=== PATIENT | female | born 1950 | race Caucasian/White ===

== ENCOUNTER 2020-02-03 06:10 | Inpatient (IN) | payer MEDICARE ==
[2020-02-03 12:07] VITALS: BP 138/88
[2020-02-03] MEDS ORDERED: Magnesium Hydroxide (MOM) 30 mL UDC PO PRN (12:14)
[2020-02-03] MEDS ORDERED: Maalox 30 mL Cup PO PRN (12:14)
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
--- NOTE | 2020-02-03 23:45 | History & Physical ---
ADMIT DATE: 02/03/2020 HISTORY OF PRESENT ILLNESS: The patient is a 70-year-old female with long history of depression, alcohol dependency, degenerative joint disease, admitted to [facility] under Dr. Davies's service for evaluation and treatment. The patient denies chest pain, shortness of breath, nausea, vomiting, fever or chills. PAST MEDICAL HISTORY: Significant for depression, degenerative joint disease, alcohol dependency. PAST SURGICAL HISTORY: No recent surgery. ALLERGIES: None. MEDICATIONS: Follow admission reconciliation. REVIEW OF SYSTEMS: RENAL SYSTEM: No history of chronic renal disorder. CARDIOVASCULAR SYSTEM: No coronary artery disease. ENDOCRINE SYSTEM: No diabetes or thyroid problem. GASTROINTESTINAL SYSTEM: No upper or lower gastrointestinal bleed. NEUROLOGICAL SYSTEM: No seizure disorder. MUSCULOSKELETAL SYSTEM: No muscular dystrophy. HEMATOLOGICAL SYSTEM: No bleeding tendencies. RESPIRATORY SYSTEM: No asthma. GENITOURINARY: No dysuria or hematuria. PHYSICAL EXAMINATION: GENERAL: She is awake, alert, oriented. VITAL SIGNS: Temperature is 98.2, heart rate 78, blood pressure 120/81. HEENT: Normocephalic. Pupils are reactive to light and accommodation. Sclerae clear. NECK: Supple. Negative for lymphadenopathy, JVD or bruit. CHEST: Bilaterally normal. No rhonchi or wheezing. HEART: S1 and S2 normal. No gallop rhythm. ABDOMEN: Soft, bowel sounds positive. EXTREMITIES: No edema. NEUROLOGIC: She is awake, alert. No focal motor or sensory deficit. Cranial nerves 2-12 are intact. ASSESSMENT: 1. Degenerative joint disease. 2. Alcohol dependency. 3. Major depression. PLAN: The patient in the hospital under Dr. Davies's service. Problems addressed during this hospitalization are depression. Medical problem addressed at discharge, alcohol dependency. The patient is medically stable for activity. Thank you, Dr. Davies, for asking me to see your patient. The patient will follow up with primary physician upon discharge. JOB# [id number]
[2020-02-04] MEDS: Multivitamin Tab PO SCH (08:53)
--- NOTE | 2020-02-04 20:20 | Internal Medicine Prog Note ---
Internal Medicine Subjective - Subjective Service Date: 02/04/20 Patient is:: awake, verbal, ambulating, talking Per staff patient has:: no adverse event Internal Medicine Objective - Physical Exam Vitals and I&O: Vital Signs Temp 97.3 F 02/04/20 14:00 Pulse 73 02/04/20 14:00 Resp 18 02/04/20 14:00 BP 118/72 02/04/20 14:00 Pulse Ox 99 02/04/20 14:00 Intake & Output 02/04/20 02/04/20 02/05/20 06:59 18:59 06:59 Intake Total 120 850 Balance 120 850 Intake: Oral 120 850 Other: # Voids 2 3 # Bowel Movements 0 0 Active Medications: Current Medications Acetaminophen (Tylenol) 650 mg PO Q4H PRN PRN Reason: Pain (Mild 1-3) Stop: 04/03/20 12:13 Last Admin: 02/03/20 21:19 Dose: 650 mg Al Hydrox/Mg Hydrox/Simethicone (Maalox) 30 ml PO Q4HR PRN PRN Reason: GI DISTRESS Stop: 04/03/20 12:13 Folic Acid (Folate) 1 mg PO DAILY [facility] Stop: 04/04/20 08:59 Last Admin: 02/04/20 08:53 Dose: 1 mg Lorazepam (Ativan) 0.5 mg PO Q4HR PRN; Protocol PRN Reason: Anxiety Stop: 03/04/20 12:13 Magnesium Hydroxide (Milk Of Magnesia) 30 ml PO HS PRN PRN Reason: Constipation Mirtazapine (Remeron) 7.5 mg PO HS [facility]; Protocol Stop: 04/03/20 20:59 Last Admin: 02/03/20 21:19 Dose: 7.5 mg Multivitamins/Vitamin C (Theragran) 1 tab PO DAILY [facility] Stop: 04/04/20 08:59 Last Admin: 02/04/20 08:53 Dose: 1 tab Thiamine HCl (Vitamin B1) 100 mg PO DAILY [facility] Stop: 04/04/20 08:59 Last Admin: 02/04/20 08:53 Dose: 100 mg General: alert HEENT: NC/AT, PERRLA, EOMI, anicteric sclerae, throat clear Neck: Supple, No JVD, No thyromegaly, +2 carotid pulse wo bruit, No LAD Lungs: CTAB Cardiovascular: RRR, Normal S1, Normal S2, without murmur Abdomen: non-tender, non-distended Extremities: clear Neurological: no change, gait stable Internal Medicine Assmt/Plan - Assessment Assessment: 1.HTN. 2.ALCOHOL DEPENDENCY. 3.MAJOR DEPRESSION - Plan Plan: CONTINUE ON CURRENT MEDICATION AND ADD COZAAR 100 MG PO DAILY.
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
[2020-02-05] MEDS: Multivitamin Tab PO SCH (08:34)
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
--- NOTE | 2020-02-05 17:08 | Internal Medicine Prog Note ---
Internal Medicine Subjective - Subjective Service Date: 02/05/20 Patient seen and examined:: without staff (SHE FEELS WELL) Patient is:: awake, verbal, ambulating, talking Per staff patient has:: no adverse event Internal Medicine Objective - Physical Exam Vitals and I&O: Vital Signs Temp 98.6 F 02/05/20 14:00 Pulse 88 02/05/20 14:00 Resp 20 02/05/20 14:00 BP 126/77 02/05/20 14:00 Pulse Ox 97 02/05/20 14:00 Intake & Output 02/04/20 02/05/20 02/05/20 18:59 06:59 18:59 Intake Total 850 120 120 Balance 850 120 120 Intake: Oral 850 120 120 Other: # Voids 3 2 2 # Bowel Movements 0 0 0 Active Medications: Current Medications Acetaminophen (Tylenol) 650 mg PO Q4H PRN PRN Reason: Pain (Mild 1-3) Stop: 04/03/20 12:13 Last Admin: 02/03/20 21:19 Dose: 650 mg Al Hydrox/Mg Hydrox/Simethicone (Maalox) 30 ml PO Q4HR PRN PRN Reason: GI DISTRESS Stop: 04/03/20 12:13 Folic Acid (Folate) 1 mg PO DAILY [facility] Stop: 04/04/20 08:59 Last Admin: 02/05/20 08:34 Dose: 1 mg Lorazepam (Ativan) 0.5 mg PO Q4HR PRN; Protocol PRN Reason: Anxiety Stop: 03/04/20 12:13 Losartan Potassium (Cozaar) 100 mg PO DAILY [facility] Stop: 04/05/20 08:59 Last Admin: 02/05/20 08:34 Dose: 100 mg Magnesium Hydroxide (Milk Of Magnesia) 30 ml PO HS PRN PRN Reason: Constipation Mirtazapine (Remeron) 15 mg PO HS [facility]; Protocol Stop: 04/05/20 20:59 Multivitamins/Vitamin C (Theragran) 1 tab PO DAILY [facility] Stop: 04/04/20 08:59 Last Admin: 02/05/20 08:34 Dose: 1 tab Thiamine HCl (Vitamin B1) 100 mg PO DAILY [facility] Stop: 04/04/20 08:59 Last Admin: 02/05/20 08:34 Dose: 100 mg General: alert HEENT: NC/AT, PERRLA, EOMI, anicteric sclerae, throat clear Neck: Supple, No JVD, No thyromegaly, +2 carotid pulse wo bruit, No LAD Lungs: CTAB Cardiovascular: RRR, Normal S1, Normal S2, without murmur Abdomen: non-tender, non-distended Extremities: clear Neurological: no change, gait stable Internal Medicine Assmt/Plan - Assessment Assessment: 1.HTN. 2.ALCOHOL DEPENDENCY. 3.MAJOR DEPRESSION - Plan Plan: CONTINUE ON CURRENT MEDICATION AND DIET
[2020-02-06] MEDS: Multivitamin Tab PO SCH (08:23)
--- NOTE | 2020-02-06 14:59 | Internal Medicine Prog Note ---
Internal Medicine Subjective - Subjective Service Date: 02/06/20 Patient seen and examined:: without staff (SHE IS DOING BETTER) Patient is:: awake, verbal, ambulating, talking Per staff patient has:: no adverse event Internal Medicine Objective - Physical Exam Vitals and I&O: Vital Signs Temp 98.9 F 02/06/20 14:00 Pulse 83 02/06/20 14:00 Resp 20 02/06/20 14:00 BP 127/57 02/06/20 14:00 Pulse Ox 96 02/06/20 14:00 Intake & Output 02/05/20 02/06/20 02/06/20 18:59 06:59 18:59 Intake Total 1020 240 Balance 1020 240 Intake: Oral 1020 240 Other: # Voids 3 2 # Bowel Movements 1 0 Active Medications: Current Medications Acetaminophen (Tylenol) 650 mg PO Q4H PRN PRN Reason: Pain (Mild 1-3) Stop: 04/03/20 12:13 Last Admin: 02/06/20 11:04 Dose: 650 mg Al Hydrox/Mg Hydrox/Simethicone (Maalox) 30 ml PO Q4HR PRN PRN Reason: GI DISTRESS Stop: 04/03/20 12:13 Folic Acid (Folate) 1 mg PO DAILY [facility] Stop: 04/04/20 08:59 Last Admin: 02/06/20 08:23 Dose: 1 mg Lorazepam (Ativan) 0.5 mg PO Q4HR PRN; Protocol PRN Reason: Anxiety Stop: 03/04/20 12:13 Last Admin: 02/06/20 11:04 Dose: 0.5 mg Losartan Potassium (Cozaar) 100 mg PO DAILY [facility] Stop: 04/05/20 08:59 Last Admin: 02/06/20 08:23 Dose: 100 mg Magnesium Hydroxide (Milk Of Magnesia) 30 ml PO HS PRN PRN Reason: Constipation Mirtazapine (Remeron) 30 mg PO HS [facility]; Protocol Stop: 04/06/20 20:59 Multivitamins/Vitamin C (Theragran) 1 tab PO DAILY [facility] Stop: 04/04/20 08:59 Last Admin: 02/06/20 08:23 Dose: 1 tab Thiamine HCl (Vitamin B1) 100 mg PO DAILY [facility] Stop: 04/04/20 08:59 Last Admin: 02/06/20 08:23 Dose: 100 mg General: alert HEENT: NC/AT, PERRLA, EOMI, anicteric sclerae, throat clear Neck: Supple, No JVD, No thyromegaly, +2 carotid pulse wo bruit, No LAD Lungs: CTAB Cardiovascular: RRR, Normal S1, Normal S2, without murmur Abdomen: non-tender, non-distended Extremities: clear Neurological: no change, gait stable Internal Medicine Assmt/Plan - Assessment Assessment: 1.HTN. 2.ALCOHOL DEPENDENCY. 3.MAJOR DEPRESSION - Plan Plan: CONTINUE ON CURRENT MEDICATION AND DIET
--- NOTE | 2020-02-06 22:37 | Progress Notes ---
DATE: 02/06/2020 Case was discussed with staff of the patient, reviewed records. The patient reports she slept a little bit better; however, not that well. I did increase her Remeron to 50 mg. Apparently, it did not work. I will be increasing it further to 30 mg at bedtime. No side effects with the medication, no sedation, no nausea and she continues to deny that she has any intent to harm her son-in-law and no intent to harm herself. We will continue outpatient group therapy, milieu therapy, adjust medication as needed. JOB# [id number]
[2020-02-07] MEDS: Multivitamin Tab PO SCH (09:06)
--- NOTE | 2020-02-07 20:09 | General Progress Note ---
Subjective - Review of Systems Service Date: 02/07/20 Subjective: resting comfortably no distress Objective - Physical Exam Vitals and I&O: Vital Signs Temp 97.6 F 02/07/20 14:00 Pulse 79 02/07/20 14:00 Resp 20 02/07/20 14:00 BP 113/65 02/07/20 14:00 Pulse Ox 97 02/07/20 14:00 Intake & Output 02/07/20 02/07/20 02/08/20 06:59 18:59 06:59 Intake Total 400 1200 Balance 400 1200 Intake: Oral 400 1200 Other: # Voids 1 # Bowel Movements 0 1 Active Medications: Current Medications Acetaminophen (Tylenol) 650 mg PO Q4H PRN PRN Reason: Pain (Mild 1-3) Stop: 04/03/20 12:13 Last Admin: 02/07/20 09:19 Dose: 650 mg Al Hydrox/Mg Hydrox/Simethicone (Maalox) 30 ml PO Q4HR PRN PRN Reason: GI DISTRESS Stop: 04/03/20 12:13 Folic Acid (Folate) 1 mg PO DAILY [facility] Stop: 04/04/20 08:59 Last Admin: 02/07/20 09:06 Dose: 1 mg Lorazepam (Ativan) 0.5 mg PO Q4HR PRN; Protocol PRN Reason: Anxiety Stop: 03/04/20 12:13 Last Admin: 02/07/20 16:52 Dose: 0.5 mg Losartan Potassium (Cozaar) 100 mg PO DAILY [facility] Stop: 04/05/20 08:59 Last Admin: 02/07/20 09:19 Dose: 100 mg Magnesium Hydroxide (Milk Of Magnesia) 30 ml PO HS PRN PRN Reason: Constipation Mirtazapine (Remeron) 30 mg PO HS [facility]; Protocol Stop: 04/06/20 20:59 Last Admin: 02/06/20 21:30 Dose: 30 mg Multivitamins/Vitamin C (Theragran) 1 tab PO DAILY [facility] Stop: 04/04/20 08:59 Last Admin: 02/07/20 09:06 Dose: 1 tab Thiamine HCl (Vitamin B1) 100 mg PO DAILY [facility] Stop: 04/04/20 08:59 Last Admin: 02/07/20 09:05 Dose: 100 mg General: Alert, Oriented x3 HEENT: Atraumatic Neck: Supple, JVD, Thyromegaly Cardiovascular: Regular rate, Normal S1, Normal S2 Lungs: Clear to auscultation Abdomen: Bowel sounds, Soft Assessment/Plan - Assessment Assessment: 1.HTN. 2.ALCOHOL DEPENDENCY. 3.MAJOR DEPRESSION - Plan Plan: continue current treatment
--- NOTE | 2020-02-08 00:03 | Progress Notes ---
DATE: 02/07/2020 SUBJECTIVE: The patient in the hospital, on hold ____ son-in-law, high anxiety, not wanting to engage with me today. Limited [id number], coming from [facility], apparently intoxicated, homicidal thoughts per nursing staff, well oriented, angry, upset, noting that she was drinking alcohol, intoxicated at time. Staff watching her closely. She is noted to be socializing well with peers, still irritable at times, angry, upset. It is unclear what happened at home. Medications were reviewed including mirtazapine, time was spent attempting to speak with the patient and staff. Medications were reviewed. Vitals were reviewed. PLAN: We will continue to monitor, coordinate care with social insurance analyst, JOB# [id number] SHAN
[2020-02-08] MEDS: Multivitamin Tab PO SCH (08:31)
--- NOTE | 2020-02-08 14:50 | General Progress Note ---
Subjective - Review of Systems Service Date: 02/08/20 Subjective: resting comfortably no distress Objective - Physical Exam Vitals and I&O: Vital Signs Temp 98.2 F 02/08/20 06:33 Pulse 62 02/08/20 08:32 Resp 18 02/08/20 07:53 BP 127/82 02/08/20 08:32 Pulse Ox 98 02/08/20 06:33 Intake & Output 02/07/20 02/08/20 02/08/20 18:59 06:59 18:59 Intake Total 1200 280 Balance 1200 280 Intake: Oral 1200 280 Other: # Voids 2 # Bowel Movements 1 0 Active Medications: Current Medications Acetaminophen (Tylenol) 650 mg PO Q4H PRN PRN Reason: Pain (Mild 1-3) Stop: 04/03/20 12:13 Last Admin: 02/07/20 09:19 Dose: 650 mg Al Hydrox/Mg Hydrox/Simethicone (Maalox) 30 ml PO Q4HR PRN PRN Reason: GI DISTRESS Stop: 04/03/20 12:13 Folic Acid (Folate) 1 mg PO DAILY [facility] Stop: 04/04/20 08:59 Last Admin: 02/08/20 08:31 Dose: 1 mg Lorazepam (Ativan) 0.5 mg PO Q4HR PRN; Protocol PRN Reason: Anxiety Stop: 03/04/20 12:13 Last Admin: 02/08/20 08:32 Dose: 0.5 mg Losartan Potassium (Cozaar) 100 mg PO DAILY [facility] Stop: 04/05/20 08:59 Last Admin: 02/08/20 08:32 Dose: 100 mg Magnesium Hydroxide (Milk Of Magnesia) 30 ml PO HS PRN PRN Reason: Constipation Mirtazapine (Remeron) 30 mg PO HS [facility]; Protocol Stop: 04/06/20 20:59 Last Admin: 02/07/20 21:43 Dose: 30 mg Multivitamins/Vitamin C (Theragran) 1 tab PO DAILY [facility] Stop: 04/04/20 08:59 Last Admin: 02/08/20 08:31 Dose: 1 tab Thiamine HCl (Vitamin B1) 100 mg PO DAILY [facility] Stop: 04/04/20 08:59 Last Admin: 02/08/20 08:31 Dose: 100 mg General: Alert, Oriented x3 HEENT: Atraumatic Neck: Supple, JVD, Thyromegaly Cardiovascular: Regular rate, Normal S1, Normal S2 Lungs: Clear to auscultation Abdomen: Bowel sounds, Soft Assessment/Plan - Assessment Assessment: 1.HTN. 2.ALCOHOL DEPENDENCY. 3.MAJOR DEPRESSION - Plan Plan: continue current treatment
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
[2020-02-09] MEDS: Multivitamin Tab PO SCH (08:31)
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
--- NOTE | 2020-02-09 19:32 | Progress Notes ---
DATE: 02/09/2020 SUBJECTIVE: Case was discussed with staff of the patient, reviewed records. The patient reports she is starting to feel a little bit better, sleeping better, eating better. She is less withdrawn. She tends to isolate herself. Continues to feel anxious. She reports medication were not helping. No side effects with the medication, no sedation, no nausea. I did increase her Remeron to 30 mg at bedtime with no side effects, no sedation, no nausea. We will continue outpatient group therapy, milieu therapy, and adjust medications as needed. JOB# [id number] SHAN
[2020-02-10] MEDS: Multivitamin Tab PO SCH (08:31)
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
[2020-02-11] MEDS: Multivitamin Tab PO SCH (08:36)
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
[2020-02-12] MEDS: Multivitamin Tab PO SCH (08:13)
--- NOTE | 2020-02-12 19:43 | Internal Medicine Prog Note ---
Internal Medicine Subjective - Subjective Service Date: 02/12/20 Patient seen and examined:: without staff (SHE FEELS WELL) Patient is:: awake, verbal, ambulating, talking Per staff patient has:: no adverse event Internal Medicine Objective - Physical Exam Vitals and I&O: Vital Signs Temp 97.2 F 02/12/20 14:00 Pulse 90 02/12/20 14:00 Resp 20 02/12/20 14:00 BP 135/76 02/12/20 14:00 Pulse Ox 92 02/12/20 14:00 Intake & Output 02/12/20 02/12/20 02/13/20 06:59 18:59 06:59 Intake Total 120 1320 Balance 120 1320 Intake: Oral 120 1200 Other 120 Other: # Voids 2 3 # Bowel Movements 0 1 Active Medications: Current Medications Acetaminophen (Tylenol) 650 mg PO Q4H PRN PRN Reason: Pain (Mild 1-3) Stop: 04/03/20 12:13 Last Admin: 02/12/20 15:47 Dose: 650 mg Al Hydrox/Mg Hydrox/Simethicone (Maalox) 30 ml PO Q4HR PRN PRN Reason: GI DISTRESS Stop: 04/03/20 12:13 Folic Acid (Folate) 1 mg PO DAILY MELVIN Stop: 04/04/20 08:59 Last Admin: 02/12/20 08:12 Dose: 1 mg Lorazepam (Ativan) 0.5 mg PO BID PRN; Protocol PRN Reason: Anxiety Stop: 03/04/20 12:13 Last Admin: 02/12/20 15:46 Dose: 0.5 mg Losartan Potassium (Cozaar) 100 mg PO DAILY MELVIN Stop: 04/05/20 08:59 Last Admin: 02/12/20 08:13 Dose: 100 mg Magnesium Hydroxide (Milk Of Magnesia) 30 ml PO HS PRN PRN Reason: Constipation Mirtazapine (Remeron) 30 mg PO HS MELVIN; Protocol Stop: 04/06/20 20:59 Last Admin: 02/11/20 20:45 Dose: 30 mg Multivitamins/Vitamin C (Theragran) 1 tab PO DAILY MELVIN Stop: 04/04/20 08:59 Last Admin: 02/12/20 08:13 Dose: 1 tab Thiamine HCl (Vitamin B1) 100 mg PO DAILY MELVIN Stop: 04/04/20 08:59 Last Admin: 02/12/20 08:12 Dose: 100 mg General: alert HEENT: NC/AT, PERRLA, EOMI, anicteric sclerae, throat clear Neck: Supple, No JVD, No thyromegaly, +2 carotid pulse wo bruit, No LAD Lungs: CTAB Cardiovascular: RRR, Normal S1, Normal S2, without murmur Abdomen: non-tender, non-distended Extremities: clear Neurological: no change, gait stable Internal Medicine Assmt/Plan - Assessment Assessment: 1.HTN. 2.ALCOHOL DEPENDENCY. 3.MAJOR DEPRESSION - Plan Plan: CONTINUE ON CURRENT MEDICATION AND DIET Nutritional Asmnt/Malnutr-PDOC - Dietary Evaluation Malnutrition Findings (Please click <Entered> for more info): Nutritional Asmnt/Malnutrition Start: 02/03/20 16: 19 Text: Status: Complete Freq: Protocol: Document 02/09/20 14:37 KAYLA (Rec: 02/09/20 14:40 KAYLA [email or web address]) Nutritional Asmnt/Malnutrition Patient General Information Nutritional Screening Moderate Risk Diagnosis Psychosis Pertinent Medical Hx/Surgical Hx Significant for depression, degenerative joint disease, alcohol dependency Subjective Information Pt is a 70-year-old female admitted on 02/02 d/t danger to others. Pt is eating an estimated 100% of meals Per Meal/Nutrition Activity Record . Dietary is currently providing an estimated 2107 kcals and 89 gm Pro (x3 days) to meet 100% kcal and 100+% Pro needs- adequate. Recommendation to add a cardiac diet due to labs TG 256, Chol 233, LDL 109 (02/02). Spoke with pt. nurse Salomon to speak with MD to change diet per recommendation. Visited pt after lunch. Advised pt about their elevated TG and Chol levels. Inquired with pt about their eating habits at home. Pt stated they try to eat healthy with soups, vegetables, and beans. Provided nutrition education to pt on healthy eating tips to help lower their TG and provided heart healthy nutrition education materials in pt. discharge packet. Anthropometrics HT: 53 WT: 132 LB (60.00 kg) BMI: 20.52 (Normal) GI/ Skin Integrity GI: WNL, Soft, Non-Tender BM: 02/07 x1 I/O: 1480/Not Noted Skin: None / Intact Silver: 18 Diet Order: Regular Estimated Energy Needs: ( Geriatric, CBW) 3086-3670 kcals (25-30 kcals/ kg) 60-72g Pro (1.0-1.2 g/kg) 4925-9231 ml (25-30 ml/kg) Current Diet Order/ Nutrition Support Regular Pertinent Medications Maalox (PRN), Folate, MOM (PRN ), Theragran, Vitamin B1 Pertinent Labs 02/02: TG 303, Chol 233, LDL 109 Nutritional Hx/Data Height 1.6 m Height (Calculated Centimeters) 160.0 Current Weight (lbs) 59.874 kg Weight (Calculated Kilograms) 59.9 Weight (Calculated Grams) 52904.2 [place] Body Weight 115 % [place] Body Weight 114 Body Mass Index (BMI) 23.3 Weight Status Approriate GI Symptoms GI Symptoms None Last BM 02/07 x1 Skin Integrity/Comment: Skin: None / Intact Silver: 18 Current %PO Good (75-100%) Estimated Nutritional Goals BEE in Kcals: Using Current wt Calories/Kcals/Kg 25-30 Kcals Calculated 1319-4187 Protein: Using Current wt Protein g/k.0-1.2 Protein Calculated 60-72 Fluid: ml 9452-9108 ml (25-30 ml/kg) Nutritional Problem 1. Problem Problem Altered nutrition related labs Etiology r/t pathophysiological causes Signs/Symptoms: aeb labs TG 303, Chol 233, LDL 109 Intervention/Recommendation Recommendations by RD Dietary Education by RD1 Comments 1. Recommendation to add a cardiac diet to current diet Rx. 2. Provide pt. with nutrition education on healthy eating and healthy fats to help lower TG, Chol, and LDL (completed) . 3. Provided heart healthy nutrition education materials in pt. discharge packet ( completed). Expected Outcomes/Goals Expected Outcomes/Goals 1. PO intake to continue to meet >75% of estimated nutritional needs. 2.Monitor PO intake, wt, nutrition related labs, and skin integrity. 3. F/U as low risk in 7-10 days, 02/15-02/18
[2020-02-13] MEDS: Multivitamin Tab PO SCH (08:52)
--- NOTE | 2020-02-18 11:45 | Discharge Summary ---
DATE OF DISCHARGE: 02/13/2020 ADDENDUM In the 2 days, we have been trying to discharge her. The patient's, however, transportation failed. Today, we are planning to discharge her. She is doing well, sleeping well, eating well. Discharge diagnoses and plans are the same like in the discharge summary that were initially done on 02/11/2020. The patient has an appointment to see me next week. She will see her primary care physician. EXPECTED OUTCOME: Stable. Discharge diagnoses are the same as well as plan. JOB# [id number]
== END 2020-02-13 14:30 | disposition home or self-care (01) | DRG 885 ==
LOC: GERO 06:10
PROVIDERS: ADMIT Psychiatry & Neurology Psychiatry; ATTEND Psychiatry & Neurology Psychiatry
DX: F33.2 Major depressive disorder, recurrent severe without psychotic features (principal); M19.90 Unspecified osteoarthritis, unspecified site; I10 Essential (primary) hypertension; F41.1 Generalized anxiety disorder; F10.20 Alcohol dependence, uncomplicated
CPT/HCPCS: 83036-90; G0410; Z7610